=== PATIENT | female | born 1995 | race Caucasian/White ===

== ENCOUNTER 2019-06-24 09:09 | Inpatient (IN) ==
[2019-06-24] MEDS ORDERED: OXYTOCIN 30 UNITS/500 ML BAG IV PRN ×3 (09:39→19:58)
--- NOTE | 2019-06-24 09:45 | History & Physical Report ---
Date of Service June 24, 2019 Patient at 41 weeks who was seen in the office yesterday for elevated blood pressures she is seen here again this morning to determine if she needs induction she has no headaches or severe visual changes or upper abdominal pain apparently blood test in the office were normal I will confirm these later group B strep negative first baby uncomplicated otherwise Assessment & Plan (1) Gestational [-induced] hypertension without significant proteinuria, complicating childbirth: Patient's blood pressure today had a diastolic of 91 that she meets criteria for gestational hypertension. She is 41 weeks. Today is Wednesday and I informed the patient we typically do not do elective inductions on the weekend however with her meeting criteria for gestational hypertension I recommend induction today she is agreeable agreeable. Recommend Pitocin History of Present Illness Primary Care Provider: NO PCP Allergies Allergy/AdvReac Type Severity Reaction Status Date / Time No Known Allergies Allergy Verified 06/23/19 14:19 Home Medications Home Medications Medication Instructions Recorded Confirmed Type PNV cmb#95-ferrous fumarate-FA 1 tab PO DAILY 11/20/18 06/23/19 History [] valacyclovir 1 gram tablet 1,000 mg PO DAILY #30 tab 05/24/19 06/23/19 Rx Patient History Medical History Abnormal menses (Inactive) Adenoid hypertrophy 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) History of drug use (Inactive) History of dysmenorrhea (Inactive) History of earache History of eustachian tube dysfunction History of varicella Otitis externa Recurrent otitis media Suicidal ideation (Resolved) Surgical History History of tonsillectomy (Resolved) Status post myringotomy with insertion of tube Family History Mother Depression Father Drinking problem Grandmother (Paternal) Breast cancer Grandfather (Maternal) Diabetes Other Hypertension Social History marital status: Single Current Living Situation: Family current occupational status: employed Feels Safe at Home: Yes Smoking Status: Former smoker Hx Alcohol Use: No Hx Substance Use: Yes Physical Exam Constitutional: WD/WN, vitals as above Respiratory: normal respiratory effort, lungs clear to auscultation Cardiovascular: RRR, no murmur, no edema Genitourinary: OB Exam Abdomen: + vertex Manual OB Exam: + cervical dilation 2 cm, + cervical effacement 80% and + station -1 Results & Data Vital Signs (Past 12 Hours) Vital Signs Pulse BP 06/24/19 09:35 87 135/91
[2019-06-24 10:07] LABS: Hematocrit (blood only) 37.3 % (37-47); Hemoglobin 12.5 g/dL (12.0-16.0); Mean Corpuscular Hemoglobin 32.1 pg (25-34); Mean Corpuscular Volume 95.6 fL (80-100); Platelet Count 232 K/uL (130-400); RDW Coefficient of Variation 14.8 % (11.5-14.5); White Blood Count 9.85 K/uL (4.8-10.8)
[2019-06-24 10:16] LABS: Mean Corpuscular Hgb Conc 33.5 g/dL (32-36)
[2019-06-24] MEDS: LACTATED RINGER'S 1,000 ML IV PRN ×2 (11:12→13:59)
--- NOTE | 2019-06-24 11:14 | Labor Progress Brief Note ---
Date of Service June 24, 2019 I am unable to see any labs in the EHR system of either [facility] or [facility] record. I will order these now Results & Data Vital Signs (Past 12 Hours) Vital Signs Temp Pulse Resp BP 06/24/19 10:34 67 155/95 H 06/24/19 10:10 98.2 F 20 06/24/19 10:09 82 138/105 H 06/24/19 09:35 87 135/91
[2019-06-24 12:02] LABS: Amphetamines+Metham, Urine Neg (Neg); Barbiturates, Urine Neg (Neg); Benzodiazepine, Urine Neg (Neg); Cocaine, Urine Neg (Neg); MDMA (Ecstacy), Urine Neg (Neg); Methadone, Urine Neg (Neg); Opiate, Urine Neg (Neg); Phencyclidine, Urine Neg (Neg)
[2019-06-24 12:31] LABS: Rubella IgG Antibody Immune (Immune)
[2019-06-24 12:32] LABS: Hepatitis B Surface Antigen Neg (Neg)
[2019-06-24] MEDS ORDERED: fentaNYL 2MCG/ML ROPIV 1.25MG/ML 100 ML BAG EPI ONE (13:24)
[2019-06-24] MEDS ORDERED: BUPIVACAINE 0.25% 30 ML VIAL ONE (13:24)
[2019-06-24] MEDS ORDERED: fentaNYL citrate 100 MCG/2 ML VIAL ONE (13:24)
[2019-06-24] MEDS ORDERED: ePHEDrine sulfate 50 MG/ML AMP ONE (13:24)
--- NOTE | 2019-06-24 13:49 | Anesthesiology Consultation ---
Date of Service June 24, 2019 Assessment & Plan (1) Encounter for pre-operative examination: Chart Review Chart Review: Acceptable Risk for Labor Epidural Consults Requested none ASA ASA2 Proposed Anesthesia Anesthesia Type: Labor Epidural Risk / Benefits Reviewed With: PT / POA / Parent / Guardian, Accepts Plan and Informed Consent Obtained History Height/Weight Height: 5 ft 5 in Weight: 81.647 kg Allergies Allergy/AdvReac Type Severity Reaction Status Date / Time No Known Allergies Allergy Verified 06/23/19 14:19 Medications Home Medications Medication Instructions Recorded Confirmed Last Taken PNV cmb#95-ferrous fumarate-FA 1 tab PO DAILY 11/20/18 06/24/19 06/23/19 09:00 [] valacyclovir 1 gram tablet 1,000 mg PO DAILY #30 tab 05/24/19 06/24/19 06/24/19 07:00 Active Medications Generic Name Dose Route Start Last Admin Trade Name Freq PRN Reason Stop Dose Admin Lactated Ringer's 1,000 mls @ 125 mls/hr 06/24/19 09:39 06/24/19 13:15 Lr IV 06/26/19 09:38 999 mls/hr .Q8H PRN Infusion L&D Protocol Protocol Oxytocin 30 units in 500 mls @ 4 mls/hr 06/24/19 09:39 06/24/19 12:23 Pitocin IV 06/26/19 09:38 0.24 units/hr .Q24H PRN 4 mls/hr Labor Induction/Augmentation Titration Protocol 0.24 UNITS/HR Past Medical History Medical History Abnormal menses (Inactive) Adenoid hypertrophy 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) History of drug use (Inactive) History of dysmenorrhea (Inactive) History of earache History of eustachian tube dysfunction History of varicella Otitis externa Recurrent otitis media Suicidal ideation (Resolved) Exercise / Class Metabolic Activity II 4-5 Yardwork/Stairs/Walk up hill Past Family History Family History Mother Depression Father Drinking problem Grandmother (Paternal) Breast cancer Grandfather (Maternal) Diabetes Other Hypertension Past Surgical History Surgical History History of tonsillectomy (Resolved) Status post myringotomy with insertion of tube Past Anesthesia History No Hx of Anesthesia Complications and No Family Hx of Anesthesia Complications History of PONV No Hx of PONV and No Hx of Motion Sickness Social History Smoking Status: Former smoker Smoking cigarettes per day: Pt quit 10/10/18 Hx Alcohol Use: No Hx Substance Use: No Physical Exam Vital Signs Last Vital Signs Temp 98.1 F 06/24/19 12:00 Pulse 61 06/24/19 13:42 Resp 18 06/24/19 13:00 BP 153/86 H 06/24/19 13:33 Pulse Ox 100 06/24/19 13:42 ENMT Mouth: no dentition abnormality Thyromental Distance: > or= 3.5 Finger Breadths Mallampati Class: II Neck normal visual inspection Respiratory normal respiratory effort Auscultation: lungs clear to auscultation bilaterally Cardiovascular Rate/Rhythm: regular rate and regular rhythm Testing Laboratory Results 06/24/19 09:54
[2019-06-24] MEDS ORDERED: NALOXONE HCL 0.4 MG/1 ML VIAL/CARP IV PRN (14:07)
[2019-06-24] MEDS ORDERED: NALBUPHINE HCL INJ 10 MG/ML AMP IV PRN (14:07)
[2019-06-24] MEDS ORDERED: NALOXONE HCL 1 MG in SODIUM CHLORIDE 0.9% 1000ML 1,000 ML IV PRN (14:07)
[2019-06-24] MEDS ORDERED: ONDANSETRON INJ 2 MG/ML 2 ML VIAL IV PRN (14:07)
[2019-06-24] MEDS ORDERED: ePHEDrine sulfate 50 MG/ML AMP IV PRN (14:07)
[2019-06-24] MEDS ORDERED: DiphenhydrAMINE HCL 50 MG/ML VIAL IV PRN (14:07)
[2019-06-24] MEDS ORDERED: fentaNYL 2MCG/ML ROPIV 1.25MG/ML 100 ML BAG EPI PRN (14:07)
--- NOTE | 2019-06-24 14:38 | Labor Progress Brief Note ---
Date of Service June 24, 2019 Comfy with epidural. AROM for clear fluid. tight 3cm, -1 Results & Data Vital Signs (Past 12 Hours) Vital Signs Temp Pulse Resp BP Pulse Ox 06/24/19 14:32 62 100 06/24/19 14:29 68 137/84 06/24/19 14:27 59 L 100 06/24/19 14:22 61 100 06/24/19 14:17 59 L 100 06/24/19 14:13 59 L 136/74 06/24/19 14:12 59 L 100 06/24/19 14:10 68 126/65 06/24/19 14:08 64 130/66 06/24/19 14:07 57 L 127/64 99 06/24/19 14:05 145/82 H 06/24/19 14:02 56 L 148/86 H 100 06/24/19 14:00 58 L 144/77 H 06/24/19 13:57 59 L 100 06/24/19 13:52 61 100 06/24/19 13:47 76 100 06/24/19 13:42 61 100 06/24/19 13:37 67 100 06/24/19 13:33 58 L 153/86 H 06/24/19 13:00 18 06/24/19 12:30 18 06/24/19 12:00 98.1 F 20 06/24/19 11:46 57 L 142/94 H 06/24/19 11:30 20 06/24/19 11:00 20 06/24/19 10:34 67 155/95 H 06/24/19 10:10 98.2 F 20 06/24/19 10:09 82 138/105 H 06/24/19 09:35 87 135/91
--- NOTE | 2019-06-24 19:45 | Delivery Summary ---
Vaginal Delivery Summary Date of Service June 24, 2019 Spontaneous vaginal delivery of a live vigorous female baby is delivered in occiput anterior position group B strep status was negative fluid was clear loose nuchal cord passed over the head not mouth and nares were suctioned with bulb gentle traction the baby no excessive force live vigorous female infant delivered without difficulty cord clamped and cut cord gases obtained cord blood obtained placenta removed with traction IV Pitocin started uterus tone improved Patient had a second-degree tear repaired with 3-0 Vicryl she also had a periclitoral periurethral tear which was repaired well a temporary catheter was in place to avoid obstruction of the urethra. No local anesthetic was used to improve anesthetic in this area. Estimated blood loss 200 mL sponge and instrument counts correct
[2019-06-24] MEDS ORDERED: ACETAMINOPHEN 325 MG TAB PO PRN (19:58)
[2019-06-24] MEDS ORDERED: SUPERCREAM 0.870% 15 GM JAR EXT PRN (19:58)
[2019-06-24] MEDS ORDERED: BENZOCAINE 20% AER SPR 82.5 GM CAN EXT PRN (19:58)
[2019-06-24] MEDS ORDERED: bisacodyL 10 MG SUPP PR PRN (19:58)
[2019-06-24] MEDS ORDERED: DIPHTHERIA/TETANUS/PERTUSSIS 0.5 ML SYR/VIAL IM ONE (19:58)
[2019-06-24] MEDS ORDERED: HYDROCORTISONE ACETATE 25 MG SUPP PR PRN (19:58)
[2019-06-24 20:03] LABS: Base Excess Cord Venous Blood -3.8 mEq/L (-7.7-1.9); Cord Venous Blood HCO3 22 mmol/L (18.4-26.8); Cord Venous Blood PCO2 41 mmHg (30.4-57.2); Cord Venous Blood PO2 20 mmHg (14.1-43.3); Cord Venous Blood pH 7.34 (7.20-7.44)
[2019-06-24 20:13] LABS: Base Excess Cord Arterial Bld -8.6 mEq/L (-9-1.8); CO2 Cord Arterial Blood 45 mmHg (39.1-73.5); HCO3 Cord Arterial Blood 19 mmol/L (19.7-28.5); O2 Saturation Cord Venous Bld < 60.0 % (<68); Oxygen Sat Cord Arterial Blood < 60.0 % (<60); pH Cord Arterial Blood 7.24 (7.1-7.38)
--- NOTE | 2019-06-24 21:43 | Anesthesiology Progress Note ---
Date of Service June 24, 2019 Anesthesia Post Procedure Vital Signs Vital Signs: Temp Pulse Resp BP Pulse Ox 06/24/19 21:40 78 143/76 H 06/24/19 21:25 99 H 137/69 06/24/19 21:10 93 H 145/69 H 06/24/19 21:01 82 132/70 06/24/19 20:40 88 155/71 H 06/24/19 20:25 111 H 149/83 H 06/24/19 20:15 36.9 C 18 06/24/19 20:10 90 142/76 H 06/24/19 19:56 91 H 147/78 H 06/24/19 19:39 107 H 148/73 H 06/24/19 19:29 106 H 150/82 H 06/24/19 19:20 108 H 144/70 H 06/24/19 19:17 141 H 98 06/24/19 19:12 128 H 97 06/24/19 19:10 151 H 94 06/24/19 19:07 122 H 97 06/24/19 19:02 116 H 98 06/24/19 18:57 109 H 99 06/24/19 18:52 101 H 98 06/24/19 18:47 104 H 99 06/24/19 18:45 24 06/24/19 18:42 116 H 98 06/24/19 18:37 116 H 100 06/24/19 18:34 100 H 91 06/24/19 18:32 91 H 99 06/24/19 18:30 75 24 144/77 H 06/24/19 18:29 108 H 91 06/24/19 18:27 87 99 06/24/19 18:22 86 100 06/24/19 18:17 87 100 06/24/19 18:14 96 H 158/91 H 06/24/19 18:12 79 99 06/24/19 18:09 107 H 92 06/24/19 18:07 81 100 06/24/19 18:05 36.6 C 06/24/19 18:02 73 99 06/24/19 18:00 80 22 144/68 H 06/24/19 17:57 74 100 06/24/19 17:52 73 100 06/24/19 17:47 71 99 06/24/19 17:44 67 136/90 06/24/19 17:42 77 99 06/24/19 17:37 71 99 06/24/19 17:32 79 100 06/24/19 17:30 20 06/24/19 17:28 63 144/74 H 06/24/19 17:27 68 99 06/24/19 17:22 60 98 06/24/19 17:17 67 99 06/24/19 17:15 78 156/81 H 06/24/19 17:12 62 99 06/24/19 17:07 72 99 06/24/19 17:02 61 98 06/24/19 17:00 20 06/24/19 16:59 65 130/75 06/24/19 16:57 61 99 06/24/19 16:52 60 99 06/24/19 16:47 65 99 06/24/19 16:43 64 126/83 06/24/19 16:42 61 99 06/24/19 16:37 66 99 06/24/19 16:32 65 99 06/24/19 16:30 18 06/24/19 16:29 67 136/87 06/24/19 16:27 65 99 06/24/19 16:22 70 99 06/24/19 16:17 71 99 06/24/19 16:13 62 124/76 06/24/19 16:12 62 99 06/24/19 16:07 66 99 06/24/19 16:02 67 98 06/24/19 16:00 36.7 C 20 06/24/19 15:59 60 128/74 06/24/19 15:57 54 L 100 06/24/19 15:52 54 L 100 06/24/19 15:47 60 99 06/24/19 15:43 62 135/77 06/24/19 15:42 56 L 100 06/24/19 15:37 53 L 99 06/24/19 15:32 64 100 06/24/19 15:28 76 134/71 06/24/19 15:27 60 99 06/24/19 15:22 56 L 100 06/24/19 15:17 57 L 99 06/24/19 15:13 59 L 139/83 06/24/19 15:12 58 L 99 06/24/19 15:07 61 100 06/24/19 15:02 61 100 06/24/19 15:00 54 L 18 135/75 06/24/19 14:57 58 L 100 06/24/19 14:52 59 L 100 06/24/19 14:47 57 L 100 06/24/19 14:44 54 L 127/70 06/24/19 14:42 54 L 100 06/24/19 14:37 55 L 100 06/24/19 14:32 62 100 06/24/19 14:30 36.7 C 18 06/24/19 14:29 68 137/84 06/24/19 14:27 59 L 100 06/24/19 14:22 61 100 06/24/19 14:17 59 L 100 06/24/19 14:13 59 L 136/74 06/24/19 14:12 59 L 100 06/24/19 14:10 68 126/65 06/24/19 14:08 64 130/66 06/24/19 14:07 57 L 127/64 99 06/24/19 14:05 145/82 H 06/24/19 14:02 56 L 148/86 H 100 06/24/19 14:00 58 L 144/77 H 06/24/19 13:57 59 L 100 06/24/19 13:52 61 100 06/24/19 13:47 76 100 06/24/19 13:42 61 100 06/24/19 13:37 67 100 06/24/19 13:33 58 L 153/86 H 06/24/19 13:00 18 06/24/19 12:30 18 06/24/19 12:00 36.7 C 20 06/24/19 11:46 57 L 142/94 H 06/24/19 11:30 20 06/24/19 11:00 20 06/24/19 10:34 67 155/95 H 06/24/19 10:10 36.8 C 20 06/24/19 10:09 82 138/105 H 06/24/19 09:35 87 135/91 Transfer of Care Handoff Completed per policy Notes Mental Status: alert / awake / arousable and participated in evaluation Patient Amnestic to Procedure: Yes Nausea / Vomiting: adequately controlled Pain: adequately controlled Airway Patency, RR, SpO2: stable & adequate BP & HR: stable & adequate Hydration State: stable & adequate Anesthetic Complications: no major complications apparent and Pt Satisfied with anesthetic care
[2019-06-25] MEDS: IBUPROFEN 600 MG TAB PO PRN ×4 (00:34→21:43)
[2019-06-25 02:08] VITALS: O2SAT 99
--- NOTE | 2019-06-25 06:34 | Obstetrical Progress Note ---
Date of Service June 25, 2019 day #1 from induction on Wednesday patient is doing well minimal bleeding her pain is well controlled she is able to void she has no extremity pain and no depression Assessment & Plan (1) Gestational [-induced] hypertension without significant proteinuria, complicating childbirth: day #1 continue current care Physical Exam Constitutional WD/WN, vitals as above Gastrointestinal (Abdomen) normal bowel sounds, soft, nontender, no hepatosplenomegaly Minimal vaginal bleeding noted no extremity tenderness Results & Data Vital Signs (Past 12 Hours) Vital Signs Temp Pulse Pulse Resp BP BP Pulse Ox 06/25/19 05:05 98.1 F 59 L 16 120/71 99 06/25/19 01:39 97.7 F 75 16 135/75 99 06/24/19 21:40 78 18 143/76 H 06/24/19 21:25 99 H 137/69 06/24/19 21:10 93 H 18 145/69 H 06/24/19 21:01 82 132/70 06/24/19 20:40 88 18 155/71 H 06/24/19 20:25 111 H 16 149/83 H 06/24/19 20:15 98.4 F 18 06/24/19 20:10 90 18 142/76 H 06/24/19 19:56 91 H 147/78 H 06/24/19 19:55 98.2 F 16 06/24/19 19:40 16 06/24/19 19:39 107 H 148/73 H 06/24/19 19:29 106 H 150/82 H 06/24/19 19:20 108 H 144/70 H 06/24/19 19:17 141 H 98 06/24/19 19:12 128 H 97 06/24/19 19:10 151 H 94 06/24/19 19:07 122 H 97 06/24/19 19:02 116 H 98 06/24/19 18:57 109 H 99 06/24/19 18:52 101 H 98 06/24/19 18:47 104 H 99 06/24/19 18:45 24 06/24/19 18:42 116 H 98 06/24/19 18:37 116 H 100 06/24/19 18:34 100 H 91
[2019-06-25 07:06] LABS: Hematocrit (blood only) 32.6 % (37-47); Hemoglobin 10.8 g/dL (12.0-16.0); Mean Corpuscular Hemoglobin 31.6 pg (25-34); Mean Corpuscular Hgb Conc 33.1 g/dL (32-36); Mean Corpuscular Volume 95.3 fL (80-100); Mean Platelet Volume 12.2 fL (7.4-10.4); Platelet Count 204 K/uL (130-400); RDW Standard Deviation 51.6 fL (36.4-46.3); Red Blood Count 3.42 M/uL (4.2-5.4); White Blood Count 11.94 K/uL (4.8-10.8)
[2019-06-25] MEDS ORDERED: NON-FORMULARY MEDICATION (Pnv Cmb#95-Ferrous Fumarate-Fa [Prenatal] 1 TAB) PO SCH (09:00)
[2019-06-25] MEDS: PRENATAL VITAMIN 1 TAB PO SCH (09:21)
[2019-06-25] MEDS: DOCUSATE SODIUM 100 MG CAP PO SCH ×2 (09:21→21:47)
[2019-06-25] MEDS: OXYCODONE/ACETAMINOPHEN 5mg/325mg TAB PO PRN ×2 (10:40→21:44)
[2019-06-25] MEDS ORDERED: bisacodyL 5 MG TABEC PO SCH (20:00)
[2019-06-26 06:36] LABS: Hematocrit (blood only) 33.8 % (37-47); Hemoglobin 11.1 g/dL (12.0-16.0)
--- NOTE | 2019-06-26 06:43 | Obstetrical Progress Note ---
Date of Service June 26, 2019 Assessment & Plan (1) Gestational [-induced] hypertension without significant pr oteinuria, complicating childbirth: 24 yo PPD2 s/p complicated by preecclampsia - BP within normal limits today, 132/79 - ambulating, voiding without difficulty - some pain with getting out of bed - okay for discharge home today - preliminary Hep-C Ab positive; will follow up for confirmatory culture (2) Encounter for supervision in primigravida, antepartum: Supervising Physician Co-Signing Physician Notes Resident Physician Supervision Note: I interviewed and examined the patient. Discussed with Dr. Dr. Crawford and agree with findings and plan as documented in the note. Any exceptions or clarifications are listed here: [None] Documented By: Andrea Perez MD, FACOG Subjective No acute complaints. Feeling well this AM. has been able to ambulate without issue. Review of Systems Constitutional: + fatigue; no fever and no chills Respiratory: no cough and no dyspnea Cardiovascular: + edema; no chest pain, no syncope and no calf pain Gastrointestinal: no abdominal pain, no nausea, no vomiting, no cramping, no constipation and no diarrhea/loose stools Genitourinary: no dysuria and no difficulty urinating Neurologic: no headache(s) Physical Exam Constitutional: well developed and well nourished Respiratory: normal respiratory effort; no respiratory distress, no labored breathing and no cough Auscultation: no crackles, no rales, no rhonchi and no wheezes Cardiovascular: Rate/Rhythm: regular rate and regular rhythm Heart Sounds: no gallop, no murmur and no cardiac rub Extremities: + pedal edema Gastrointestinal (Abdomen): Inspection/Auscultation: + abdomen distended and normal bowel sounds Percussion/Palpation: abdomen soft; abdomen nontender and no guarding Genitourinary: Uterus firm, palpable 2 fingers below umbilicus Results & Data Vital Signs (Past 12 Hours) Vital Signs Temp Pulse Resp BP Pulse Ox 06/26/19 00:00 37.1 C 58 L 16 132/79 99 06/25/19 20:00 36.5 C 54 L 16 125/77 99 Laboratory Results WBC 11.94 K/uL (4.8-10.8) H 06/25/19 06:28 RBC 3.42 M/uL (4.2-5.4) L 06/25/19 06:28 Hgb 11.1 g/dL (12.0-16.0) L 06/26/19 06:17 Hct 33.8 % (37-47) L 06/26/19 06:17 MCV 95.3 fL (80-100) 06/25/19 06:28 MCH 31.6 pg (25-34) 06/25/19 06:28 MCHC 33.1 g/dL (32-36) 06/25/19 06:28 RDW Std Deviation 51.6 fL (36.4-46.3) H 06/25/19 06:28 RDW Coeff of Frank 15.0 % (11.5-14.5) H 06/25/19 06:28 Plt Count 204 K/uL (130-400) 06/25/19 06:28 MPV 12.2 fL (7.4-10.4) H 06/25/19 06:28 Cord ABG pH 7.24 (7.1-7.38) 06/24/19 19:17 Cord ABG pCO2 45 mmHg (39.1-73.5) 06/24/19 19:17 Cord ABG pO2 19.0 % (4.1-31.7) 06/24/19 19:17 Cord ABG HCO3 19 mmol/L (19.7-28.5) L 06/24/19 19:17 Cord ABG Base Excess -8.6 mEq/L (-9-1.8) 06/24/19 19:17 Cord ABG O2 Sat < 60.0 % (<60) 06/24/19 19:17 Cord VBG pH 7.34 (7.20-7.44) 06/24/19 19:17 Cord VBG pCO2 41 mmHg (30.4-57.2) 06/24/19 19:17 Cord VBG pO2 20 mmHg (14.1-43.3) 06/24/19 19:17 Cord VBG HCO3 22 mmol/L (18.4-26.8) 06/24/19 19:17 Cord VBG Base Excess -3.8 mEq/L (-7.7-1.9) 06/24/19 19:17 Cord VBG O2 Sat < 60.0 % (<68) 06/24/19 19:17 Barometric Pressure 722.5 mm/Hg 06/24/19 19:17 Barometric Pressure 722.6 mm/Hg 06/24/19 19:17 Blood Gas Comments GELLER 06/24/19 19:17 Blood Gas Comments GELLER 06/24/19 19:17 Urine Opiates Screen Neg (Neg) 06/24/19 10:30 Ur Methadone, Qual Neg (Neg) 06/24/19 10:30 Urine Barbiturates Neg (Neg) 06/24/19 10:30 Ur Phencyclidine (PCP) Neg (Neg) 06/24/19 10:30 U Amphetamin/Meth Scrn Neg (Neg) 06/24/19 10:30 MDMA (Ecstasy) Screen Neg (Neg) 06/24/19 10:30 U Benzodiazepines Scrn Neg (Neg) 06/24/19 10:30 Ur Cocaine Metabolite Neg (Neg) 06/24/19 10:30 U Marijuana (THC) Screen Neg (Neg) 06/24/19 10:30 Hep Bs Antigen Neg (Neg) 06/24/19 11:34 Hepatitis C Antibody Prelim Pos (Neg) A 06/24/19 11:34 HIV 1&2 Ab/P24 Ag 4thGn Neg (Neg) 06/24/19 11:34 Rubella IgG Antibody Immune (Immune) 06/24/19 11:34 PG Care Time/CCT Total # of Minutes Spent Total Time Spent with Patient: Total time spent is greater than 50% in coordination of care (as documented) at patient's floor/unit and/or counseling patient: Resident Activity Tracking Resident Involvement: Resident Care Provided Care Provided: Adult Hospital Medicine
[2019-06-26] MEDS: DOCUSATE SODIUM 100 MG CAP PO SCH (07:56)
[2019-06-26] MEDS: PRENATAL VITAMIN 1 TAB PO SCH (07:56)
[2019-06-26 11:32] VITALS: BP 131/82; PULSE 60; TEMP 98.1
[2019-06-27 15:47] LABS: Chlamydia Trach RNA NOT DETECTED (NOT DETECTED); GC (Neis gonorrhoeae) RNA NOT DETECTED (NOT DETECTED)
== END 2019-06-26 15:45 | disposition home or self-care (01) | DRG 806 ==
LOC: OPB 09:09 → 4S1 09:10 → 4N 23:31

== ENCOUNTER 2019-06-30 23:38 | Inpatient (IN) ==
[2019-06-30] MEDS ORDERED: SODIUM CHLORIDE 0.9% 1000ML 1,000 ML IV ONE (23:57)
--- NOTE | 2019-07-01 00:13 | Emergency Department Note ---
History of Present Illness General Chief complaint: Illness Stated complaint: FEVER, CHILLS, SHAKES. JUST GAVE 7 DAYS AGO History of Present Illness This 24-year-old presents to the ER complaining of fever, chills, body aches for the past day Location: Generalized Quality: Achy Severity: Moderate Duration: Today Timing: Today Context: Patient was concerned and came in Modifying factors: better with Tylenol; worse with nothing Patient had a vaginal delivery 1 week ago secondary to gestational hypertension. She saw OB today because of her flulike symptoms and had a pelvic exam and was negative per patient. No signs of mastitis. T-max 102. She did receive her flu vaccine. She is not breast-feeding. Patient denies chest pain, dyspnea, vaginal increasing pain, vaginal odor, breast pain, cough, sore throat, neck stiffness. No sick contacts. Home Medications Home Medications Medication Instructions Recorded Confirmed Type PNV cmb#95-ferrous fumarate-FA 1 tab PO DAILY 11/20/18 07/01/19 History [] Allergies Allergy/AdvReac Type Severity Reaction Status Date / Time No Known Allergies Allergy Verified 07/01/19 00:31 Past Med/Surg History Medical History Abnormal menses (Inactive) Adenoid hypertrophy 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) History of drug use (Inactive) History of dysmenorrhea (Inactive) History of earache History of eustachian tube dysfunction History of varicella Otitis externa Recurrent otitis media Suicidal ideation (Resolved) Surgical History History of tonsillectomy (Resolved) Status post myringotomy with insertion of tube Family History Mother Depression Father Drinking problem Grandmother (Paternal) Breast cancer Grandfather (Maternal) Diabetes Other Hypertension Social History Preferred Language: Latvian Communication Ability: Effective Beliefs That Will Affect Care: None marital status: Single Current Living Situation: Significant Other Current Living Situation Comment: F[facility] and his 2 children current occupational status: employed Feels Safe at Home: Yes Smoking Status: Never smoker Cigarettes Per Day: Pt quit 10/10/18 ; Hx Alcohol Use: No Hx Substance Use: No Review of Systems A total of 10 systems reviewed and were otherwise negative Physical Exam Vital Signs Vital Signs - 24 hr 06/30/19 23:40 07/01/19 01:18 Temperature 37.3 C 36.8 C Temperature Source Oral Oral Pulse Rate 104 H Pulse Rate [Right Finger] 78 Pulse Rhythm Regular Pulse Strength Normal Respiratory Rate 20 18 Respiratory Effort / Characteristics Non-Labored Spontaneous Non-Labored Spontaneous Respiratory Depth Normal Normal Respiratory Pattern Regular Regular Blood Pressure 148/95 H Blood Pressure [Right Arm] 136/75 Blood Pressure Mean 112 Blood Pressure Mean [Right Arm] 95 Blood Pressure Position Sitting Blood Pressure Position [Right Arm] Lying Pulse Oximetry 96 98 Oxygen Delivery Method Room Air Room Air Sepsis Recent Fever Within 48 Hours No Sepsis Action Taken by Nursing No Action Required VITALS: Vitals are noted on the nurse's note and reviewed by myself. Vital signs reviewed. GENERAL: Pleasant female, in no acute distress, nondiaphoretic, well-developed well-nourished. SKIN: The skin was without rashes, erythema, edema, or bruising. There is no tenting of the skin. Capillary reflex less than 2 seconds. HEAD: Normocephalic atraumatic. EARS: External auditory canals clear, tympanic membranes pearly hamilton without ajay thema or effusion bilaterally. EYES: Pupils equal round and reactive to light and accommodation. Conjunctivae without injection, sclerae without icterus. Extraocular movements intact. NOSE: Patent, turbinates without inflammation or discharge. No sinus tenderness. MOUTH: Mucous membranes mildly dry. Pharynx without erythema or exudate. Uvula midline. Airway patent. Tongue does not deviate. NECK: Supple without nuchal rigidity. No lymphadenopathy. No thyromegaly. Cervical spine is nontender. No JVD. HEART: Regular rate and rhythm without murmurs gallops or rubs. LUNGS: Clear to auscultation bilaterally without wheezes, rales or rhonchi. No retractions or accessory muscle use. ABDOMEN: Positive bowel sounds x 4. Normal tympanic percussion. Soft, nontender, without masses or organomegaly. Chiang sign negative. No guarding or rebound tenderness. No CVA tenderness MUSCULOSKELETAL: No muscle atrophy, erythema, or edema noted. NEURO: Patient was alert and oriented to person place and time. Normal sensation to light and sharp touch. No focal neurological deficits. Course Administered Medications Ioversol (Optiray 320 125ml) 120 ml IV ONCE PRN PRN Reason: Interaction Checking Stop: 07/05/19 01:01 Last Admin: 07/01/19 01:03 Dose: 120 ml Documented by: [id number] Discontinued Medications Acetaminophen (Tylenol) Confirm Administered Dose 650 mg .ROUTE .STK-MED ONE Stop: 07/01/19 03:23 Last Admin: 07/01/19 03:24 Dose: 650 mg Documented by: [id number] Sodium Chloride (Nss 1000ml) 1,000 mls @ 999 mls/hr IV .Q1H1M ONE Stop: 07/01/19 00:57 Last Infusion: 07/01/19 01:17 Dose: 0 mls/hr Documented by: [id number] Admin: 07/01/19 00:19 Dose: 999 mls/hr Documented by: [id number] Ceftriaxone Sodium (Rocephin) 2,000 mg in 70 mls @ 140 mls/hr IV NOW STA Stop: 07/01/19 01:08 Last Infusion: 07/01/19 01:53 Dose: 0 mls/hr Documented by: [id number] Admin: 07/01/19 01:17 Dose: 140 mls/hr Documented by: [id number] Medical Decision Making Medical Records Attestation: I reviewed the patient's medical records. Home Medications Current Medication List: was personally reviewed by me Laboratory Data Attestation: I reviewed the patient's lab results. Result diagrams: 07/01/19 00:01 07/01/19 00:01 Lab Results 07/01/19 07/01/19 07/01/19 Range/Units 00:00 00:01 00:01 WBC 13.87 H (4.8-10.8) K/uL RBC 3.97 L (4.2-5.4) M/uL Hgb 12.6 (12.0-16.0) g/dL Hct 37.4 (37-47) % MCV 94.2 (80-100) fL MCH 31.7 (25-34) pg MCHC 33.7 (32-36) g/dL RDW Std Deviation 49.9 H (36.4-46.3) fL RDW Coeff of Frank 14.5 (11.5-14.5) % Plt Count 287 (130-400) K/uL MPV 10.5 H (7.4-10.4) fL Immature Gran % (Auto) 0.2 % Neut % (Auto) 84.3 % Lymph % (Auto) 6.1 % [place] % (Auto) 8.5 % Eos % (Auto) 0.8 % Baso % (Auto) 0.1 % Immature Gran # (Auto) 0.03 H (0.00-0.02) K/uL Neut # (Auto) 11.69 H (1.4-6.5) K/uL Lymph # (Auto) 0.84 L (1.2-3.4) K/uL [place] # (Auto) 1.18 H (0.11-0.59) K/uL Eos # (Auto) 0.11 (0-0.5) K/uL Baso # (Auto) 0.02 (0-0.2) K/uL Sodium 137 (136-145) mmol/L Potassium 3.3 L (3.5-5.1) mmol/L Chloride 107 (98-107) mmol/L Carbon Dioxide 25 (21-32) mmol/L Anion Gap 5.0 (3-11) BUN 15 (7-18) mg/dl Creatinine 0.82 (0.6-1.2) mg/dl Est Cr Clr Drug Dosing 104.6 ml/min Est GFR ( Amer) 116.1 Est GFR (Non-Af Amer) 100.2 BUN/Creatinine Ratio 18.4 (10-20) Glucose 129 H (70-99) mg/dl Calcium 8.9 (8.5-10.1) mg/dl Total Bilirubin 0.7 (0.2-1) mg/dl AST 23 (15-37) U/L ALT 37 (12-78) U/L Alkaline Phosphatase 135 H (45-117) U/L Total Protein 6.9 (6.4-8.2) gm/dl Albumin 2.8 L (3.4-5.0) gm/dl Globulin 4.1 H (2.5-4.0) gm/dl Albumin/Globulin Ratio 0.7 L (0.9-2) Urine Color Urine Appearance (Clear) Urine pH (4.5-7.5) Ur Specific [place] (1.000-1.030) Urine Protein (Negative) Urine Glucose (UA) (Negative) Urine Ketones (Negative) Urine Blood (Negative) Urine Nitrite (Negative) Urine Bilirubin (Negative) Urine Urobilinogen (Negative) Ur Leukocyte Esterase (Negative) Urine WBC (Auto) (0-5) /hpf Urine RBC (Auto) (0-4) /hpf U Hyaline Cast (Auto) (0-5) /lpf U Epithel Cells (Auto) (0-5) /lpf Urine Bacteria (Auto) (Negative) Influenza Type A (PCR) Neg for Influ A (Neg) Influenza Type B (PCR) Neg for Influ B (Neg) 07/01/19 Range/Units 00:05 WBC (4.8-10.8) K/uL RBC (4.2-5.4) M/uL Hgb (12.0-16.0) g/dL Hct (37-47) % MCV (80-100) fL MCH (25-34) pg MCHC (32-36) g/dL RDW Std Deviation (36.4-46.3) fL RDW Coeff of Frank (11.5-14.5) % Plt Count (130-400) K/uL MPV (7.4-10.4) fL Immature Gran % (Auto) % Neut % (Auto) % Lymph % (Auto) % [place] % (Auto) % Eos % (Auto) % Baso % (Auto) % Immature Gran # (Auto) (0.00-0.02) K/uL Neut # (Auto) (1.4-6.5) K/uL Lymph # (Auto) (1.2-3.4) K/uL [place] # (Auto) (0.11-0.59) K/uL Eos # (Auto) (0-0.5) K/uL Baso # (Auto) (0-0.2) K/uL Sodium (136-145) mmol/L Potassium (3.5-5.1) mmol/L Chloride (98-107) mmol/L Carbon Dioxide (21-32) mmol/L Anion Gap (3-11) BUN (7-18) mg/dl Creatinine (0.6-1.2) mg/dl Est Cr Clr Drug Dosing ml/min Est GFR ( Amer) Est GFR (Non-Af Amer) BUN/Creatinine Ratio (10-20) Glucose (70-99) mg/dl Calcium (8.5-10.1) mg/dl Total Bilirubin (0.2-1) mg/dl AST (15-37) U/L ALT (12-78) U/L Alkaline Phosphatase (45-117) U/L Total Protein (6.4-8.2) gm/dl Albumin (3.4-5.0) gm/dl Globulin (2.5-4.0) gm/dl Albumin/Globulin Ratio (0.9-2) Urine Color Yellow Urine Appearance Cloudy A (Clear) Urine pH 6.5 (4.5-7.5) Ur Specific [place] 1.011 (1.000-1.030) Urine Protein 1+ H (Negative) Urine Glucose (UA) Negative (Negative) Urine Ketones Negative (Negative) Urine Blood 3+ H (Negative) Urine Nitrite Negative (Negative) Urine Bilirubin Negative (Negative) Urine Urobilinogen Negative (Negative) Ur Leukocyte Esterase 3+ H (Negative) Urine WBC (Auto) >30 H (0-5) /hpf Urine RBC (Auto) >30 H (0-4) /hpf U Hyaline Cast (Auto) 0 (0-5) /lpf U Epithel Cells (Auto) >30 H (0-5) /lpf Urine Bacteria (Auto) 2+ H (Negative) Influenza Type A (PCR) (Neg) Influenza Type B (PCR) (Neg) Imaging Data Attestation: I personally reviewed and interpreted this imaging study as follows: MDM Narrative Prior records/ancillary studies reviewed. Triage Nursing notes reviewed. Additional history obtained from family. The patient's history was concerning for fever. Differential diagnosis: Etiologies such as viral syndrome, endometritis, mastitis, otitis, pharyngitis, pneumonia, influenza, meningitis, urinary tract infection, sepsis, bacteremia, as well as others were entertained. Physical examination: As above ER treatment provided: IV fluids, Gatorade, Rocephin On reassessment the patient felt better. Diagnostics interpreted by me: The labs revealed leukocytosis, urine concerning for infection and sent for culture. Blood cultures pending Negative flu Imaging studies: Preliminary Findings Only See Final Report For Complete Findings CT CHEST With Contrast: The aorta demonstrates a normal smooth contour without aneurysm or dissection. The pulmonary arterial tree is well-opacified with contrast. There is no evidence of pulmonary embolism. The lungs are clear. No infiltrate, consolidation, pneumothorax, or pleural effusion. CT ABDOMEN & PELVIS With Contrast: There is mild right-sided hydronephrosis and hydroureter down to the ureterovesicular junction. There is a 4 mm calcification in the right of the pelvis very near the distal right ureter and ureterovesicular junction which may represent a distal ureteral stone versus an adjacent phlebolith. There is a nonobstructive 5 mm calyceal calculus in the upper pole of the left kidney. The urinary bladder is partially distended with an unremarkable appearance. Bowel loops are unremarkable. Solid abdominal organs are unremarkable. Enlarged uterus with small amount of clot in the endometrial cavity. Radiologist: Lemuel Wakefield MD Chest x-ray with no acute consolidation, pneumothorax or free air per my interpretation Consultation: A consultation was placed with Dr. Wakefield. The case was discussed and diagnostics were reviewed. The patient was evaluated in the ER for further treatment. This appears to be consistent with pyelonephritis with possible infected stone. Patient was given antibiotics. Medicine was consulted. Urine culture was placed. Patient is agreeable treatment plan of possible admission. CAT scan is read by stat radiology and concerning for possible obstructive stone. Patient's urine is infected. She is running a fever. She has a white count. the evaluation outlined above emergent etiologies such as otitis, pharyngitis, pneumonia, meningitis, as well as others were deemed relatively unlikely. The pt informed about the findings as listed above. All questions were answered and pleased with the treatment. Case reviewed with my attending The chart was completed utilizing [employer] Speech voice recognition software. Grammatical errors, random word insertions, pronoun errors, and incomplete sentences are an occassional consequence of this system due to software limitations, ambient noise, and hardware issues. Any formal questions or concerns about the content, text, or information contained within the body of this dictation should be directly addressed to the physician computer assistant for clarification. Impression & Plan Pyelonephritis, Fever, Kidney stone Discharge Plan Visit Data Chief Complaint: Illness Stated Complaint: FEVER, CHILLS, SHAKES. JUST GAVE 7 DAYS AGO ED Provider: Mirella Olvera ED Midlevel Provider: Meron Perez Discharge Problem: Pyelonephritis, Fever, Kidney stone Patient Disposition: Being Evaluated by Hospitalist Condition: Good Discharge Instructions Interventions: ED Discharge Assessment Last Done: 07/01/19 03:33 Discharge Problem: Fever Qualifiers: Fever type: unspecified Qualified Code(s): R50.9 - Fever, unspecified
[2019-07-01 00:25] LABS: Basophils # (auto) 0.02 K/uL (0-0.2); Basophils % (auto) 0.1 %; Eosinophils # (auto) 0.11 K/uL (0-0.5); Eosinophils % (auto) 0.8 %; Hematocrit (blood only) 37.4 % (37-47); Hemoglobin 12.6 g/dL (12.0-16.0); Immature Granulocytes # (auto) 0.03 K/uL (0.00-0.02); Immature Granulocytes % (auto) 0.2 %; Lymphocytes # (auto) 0.84 K/uL (1.2-3.4); Lymphocytes % (auto) 6.1 %; Mean Corpuscular Hemoglobin 31.7 pg (25-34); Mean Corpuscular Hgb Conc 33.7 g/dL (32-36); Mean Corpuscular Volume 94.2 fL (80-100); Mean Platelet Volume 10.5 fL (7.4-10.4); Monocytes # (auto) 1.18 K/uL (0.11-0.59); Monocytes % (auto) 8.5 %; Neutrophils # (auto) 11.69 K/uL (1.4-6.5); Neutrophils % (auto) 84.3 %; Platelet Count 287 K/uL (130-400); RDW Coefficient of Variation 14.5 % (11.5-14.5); RDW Standard Deviation 49.9 fL (36.4-46.3); Red Blood Count 3.97 M/uL (4.2-5.4); White Blood Count 13.87 K/uL (4.8-10.8)
[2019-07-01 00:35] LABS: Appearance Urine Cloudy (Clear); Bacteria Urine Automated 2+ (Negative); Bilirubin Urine Negative (Negative); Blood Urine 3+ (Negative); Cast Urine Automated 0 /lpf (0-5); Color Urine Yellow; Epithelial Cell Urine Auto >30 /lpf (0-5); Glucose Urine UA Negative (Negative); Ketones Urine Negative (Negative); Leukocyte Esterase Urine 3+ (Negative); Nitrite Urine Negative (Negative); Protein Urine 1+ (Negative); RBC Urine Automated >30 /hpf (0-4); Specific Gravity Urine 1.011 (1.000-1.030); Urobilinogen Urine Negative (Negative); WBC Urine Automated >30 /hpf (0-5); pH Urine 6.5 (4.5-7.5)
[2019-07-01] MEDS ORDERED: cefTRIAXone SODIUM 2,000 MG/70 ML BAG IV STA (00:39)
[2019-07-01 00:44] LABS: Albumin Level 2.8 gm/dl (3.4-5.0); BUN Creatinine Ratio 18.4 (10-20); Calcium 8.9 mg/dl (8.5-10.1); Creatinine Clr Calc Pharmacy 104.6 ml/min; Est GFR (African American) 116.1; Est GFR (Non-African American) 100.2; Potassium 3.3 mmol/L (3.5-5.1)
[2019-07-01 00:44] LABS: Influenza A virus by PCR Neg for Influ A (Neg); Influenza B virus by PCR Neg for Influ B (Neg)
[2019-07-01 00:47] LABS: Albumin Globulin Ratio 0.7 (0.9-2); Bilirubin,Total 0.7 mg/dl (0.2-1); Globulin 4.1 gm/dl (2.5-4.0); Total Protein 6.9 gm/dl (6.4-8.2)
[2019-07-01] MEDS ORDERED: OPTIRAY 320 125ml IV PRN (01:02)
[2019-07-01] MEDS ORDERED: ONDANSETRON INJ 2 MG/ML 2 ML VIAL IV PRN ×2 (02:29→03:57)
[2019-07-01] MEDS ORDERED: ACETAMINOPHEN 325 MG TAB PO PRN (02:29)
[2019-07-01] MEDS ORDERED: POLYETHYLENE (MIRALAX) 17 GM PACK PO PRN ×2 (02:29→03:57)
[2019-07-01] MEDS ORDERED: cefTRIAXone SODIUM 1,000 MG in DEXTROSE 5% 50 ML IV SCH (02:45)
--- NOTE | 2019-07-01 03:04 | History & Physical Report ---
Date of Service July 01, 2019 Assessment & Plan (1) Kidney stone: Patient with mild right-sided hydronephrosis, 4 mm calcification in the right of the pelvis. + UA. + Fevers/chills/rigors at home Admit to medical floor Follow culture IV fluid with normal saline Pain control with Toradol as needed Nausea control Zofran as needed Strain urine Flomax daily Urology consultation appreciated Present on Admission?: Yes (2) Hepatitis C: Patient with prior history of IV drug use with successful recovery. Has been drug-free for years. Was just informed today that she has hepatitis C Outpatient referral for genotyping, imaging and possible treatment Patient s/p on 06/24/19 - doing well. No gynecological complications suspected at this time. -Encourage ambulation -Pads/maggie-care as needed F/E/N- NSS at 125mL/hr, monitor electrolytes and replete as needed, K-riders, NPO for now Ppx - low risk, encourage ambulation Code - Full Dispo - Admit to medical floor Present on Admission?: Yes History of Present Illness Chief Complaint: Right flank pain, fevers, chills, rigors Primary Care Provider: NO PCP Robert Bae is a 24-year-old female presenting with right nephrolithiasis. Patient is s/p spontaneous vaginal delivery on 06/24/2019 with delivery of a healthy baby girl. She had some hypertension late in therefore was induced. Otherwise was uncomplicated. Uncomplicated delivery. Last night patient developed fever, chills and rigors as well as worsening dysuria and right-sided abdominal/flank pain. Her fever this evening was 102.8 which prompted her to come to the ER. Additionally she is complaining of some mild shortness of breath and she had a headache earlier in the evening which has since resolved. She is still passing lochia. Denies foul-smelling discharge or clots. Denies visual changes or edema of her hands or feet. No history of renal stones. No additional complaints at this time ER course: Ceftriaxone, normal saline solution Allergies Allergy/AdvReac Type Severity Reaction Status Date / Time No Known Allergies Allergy Verified 07/01/19 00:31 Home Medications Home Medications Medication Instructions Recorded Confirmed Type PNV cmb#95-ferrous fumarate-FA 1 tab PO DAILY 11/20/18 07/01/19 History [] Past Med/Surg History Medical History Abnormal menses (Inactive) Adenoid hypertrophy 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) History of drug use (Inactive) History of dysmenorrhea (Inactive) History of earache History of eustachian tube dysfunction History of varicella Otitis externa Recurrent otitis media Suicidal ideation (Resolved) Surgical History History of tonsillectomy (Resolved) Status post myringotomy with insertion of tube Family History Mother Depression Father Drinking problem Grandmother (Paternal) Breast cancer Grandfather (Maternal) Diabetes Other Hypertension Social History Preferred Language: Serbian Communication Ability: Effective Beliefs That Will Affect Care: None marital status: Single Current Living Situation: Significant Other Current Living Situation Comment: [facility] and his 2 children current occupational status: employed Feels Safe at Home: Yes Smoking Status: Never smoker Cigarettes Per Day: Pt quit 10/10/18 ; Hx Alcohol Use: No Hx Substance Use: No Review of Systems Review of Systems: All systems reviewed & are unremarkable except as noted in HPI & below Physical Exam Physical Exam: General: patient resting comfortably, NAD, non-toxic in appearance, AA&O x 4 Skin: warm, dry, intact, no rashes or lesions HEENT: NC/AT, PERRL, EOMI, anicteric sclera, conjunctiva without injection, external ear normal to inspection and nontender, nares patent, moist mucus membranes, dentition intact, no oropharyngeal lesions, neck supple, trachea midline, no LAD, no thyromegaly, no JVD Heart: +S1/S2, regular, no m/r/g Lungs: equal air entry bilaterally, no rales/rhonchi/wheezes Abd: +BS, soft, NT/ND, no masses/organomegaly/ascites, positive CVA tenderness on the right Ext: warm, 2+ pulses in UE/LE bilaterally, no clubbing/cyanosis or edema Neuro: nonfocal, patient AA&O x 4, speech intact, no facial droop, moving all extremities on command with equal strength 5/5 Results & Data Vital Signs (Past 12 Hours) Vital Signs Temp Pulse Pulse Resp BP BP Pulse Ox 07/01/19 01:18 36.8 C 78 18 136/75 98 06/30/19 23:40 37.3 C 104 H 20 148/95 H 96 Laboratory Results Lab Results 07/01/19 07/01/19 07/01/19 Range/Units 00:00 00:01 00:01 WBC 13.87 H (4.8-10.8) K/uL RBC 3.97 L (4.2-5.4) M/uL Hgb 12.6 (12.0-16.0) g/dL Hct 37.4 (37-47) % MCV 94.2 (80-100) fL MCH 31.7 (25-34) pg MCHC 33.7 (32-36) g/dL RDW Std Deviation 49.9 H (36.4-46.3) fL RDW Coeff of Frank 14.5 (11.5-14.5) % Plt Count 287 (130-400) K/uL MPV 10.5 H (7.4-10.4) fL Immature Gran % (Auto) 0.2 % Neut % (Auto) 84.3 % Lymph % (Auto) 6.1 % [place] % (Auto) 8.5 % Eos % (Auto) 0.8 % Baso % (Auto) 0.1 % Immature Gran # (Auto) 0.03 H (0.00-0.02) K/uL Neut # (Auto) 11.69 H (1.4-6.5) K/uL Lymph # (Auto) 0.84 L (1.2-3.4) K/uL [place] # (Auto) 1.18 H (0.11-0.59) K/uL Eos # (Auto) 0.11 (0-0.5) K/uL Baso # (Auto) 0.02 (0-0.2) K/uL Sodium 137 (136-145) mmol/L Potassium 3.3 L (3.5-5.1) mmol/L Chloride 107 (98-107) mmol/L Carbon Dioxide 25 (21-32) mmol/L Anion Gap 5.0 (3-11) BUN 15 (7-18) mg/dl Creatinine 0.82 (0.6-1.2) mg/dl Est Cr Clr Drug Dosing 104.6 ml/min Est GFR ( Amer) 116.1 Est GFR (Non-Af Amer) 100.2 BUN/Creatinine Ratio 18.4 (10-20) Glucose 129 H (70-99) mg/dl Calcium 8.9 (8.5-10.1) mg/dl Total Bilirubin 0.7 (0.2-1) mg/dl AST 23 (15-37) U/L ALT 37 (12-78) U/L Alkaline Phosphatase 135 H (45-117) U/L Total Protein 6.9 (6.4-8.2) gm/dl Albumin 2.8 L (3.4-5.0) gm/dl Globulin 4.1 H (2.5-4.0) gm/dl Albumin/Globulin Ratio 0.7 L (0.9-2) Urine Color Urine Appearance (Clear) Urine pH (4.5-7.5) Ur Specific [place] (1.000-1.030) Urine Protein (Negative) Urine Glucose (UA) (Negative) Urine Ketones (Negative) Urine Blood (Negative) Urine Nitrite (Negative) Urine Bilirubin (Negative) Urine Urobilinogen (Negative) Ur Leukocyte Esterase (Negative) Urine WBC (Auto) (0-5) /hpf Urine RBC (Auto) (0-4) /hpf U Hyaline Cast (Auto) (0-5) /lpf U Epithel Cells (Auto) (0-5) /lpf Urine Bacteria (Auto) (Negative) Influenza Type A (PCR) Neg for Influ A (Neg) Influenza Type B (PCR) Neg for Influ B (Neg) 07/01/19 Range/Units 00:05 WBC (4.8-10.8) K/uL RBC (4.2-5.4) M/uL Hgb (12.0-16.0) g/dL Hct (37-47) % MCV (80-100) fL MCH (25-34) pg MCHC (32-36) g/dL RDW Std Deviation (36.4-46.3) fL RDW Coeff of Frank (11.5-14.5) % Plt Count (130-400) K/uL MPV (7.4-10.4) fL Immature Gran % (Auto) % Neut % (Auto) % Lymph % (Auto) % [place] % (Auto) % Eos % (Auto) % Baso % (Auto) % Immature Gran # (Auto) (0.00-0.02) K/uL Neut # (Auto) (1.4-6.5) K/uL Lymph # (Auto) (1.2-3.4) K/uL [place] # (Auto) (0.11-0.59) K/uL Eos # (Auto) (0-0.5) K/uL Baso # (Auto) (0-0.2) K/uL Sodium (136-145) mmol/L Potassium (3.5-5.1) mmol/L Chloride (98-107) mmol/L Carbon Dioxide (21-32) mmol/L Anion Gap (3-11) BUN (7-18) mg/dl Creatinine (0.6-1.2) mg/dl Est Cr Clr Drug Dosing ml/min Est GFR ( Amer) Est GFR (Non-Af Amer) BUN/Creatinine Ratio (10-20) Glucose (70-99) mg/dl Calcium (8.5-10.1) mg/dl Total Bilirubin (0.2-1) mg/dl AST (15-37) U/L ALT (12-78) U/L Alkaline Phosphatase (45-117) U/L Total Protein (6.4-8.2) gm/dl Albumin (3.4-5.0) gm/dl Globulin (2.5-4.0) gm/dl Albumin/Globulin Ratio (0.9-2) Urine Color Yellow Urine Appearance Cloudy A (Clear) Urine pH 6.5 (4.5-7.5) Ur Specific [place] 1.011 (1.000-1.030) Urine Protein 1+ H (Negative) Urine Glucose (UA) Negative (Negative) Urine Ketones Negative (Negative) Urine Blood 3+ H (Negative) Urine Nitrite Negative (Negative) Urine Bilirubin Negative (Negative) Urine Urobilinogen Negative (Negative) Ur Leukocyte Esterase 3+ H (Negative) Urine WBC (Auto) >30 H (0-5) /hpf Urine RBC (Auto) >30 H (0-4) /hpf U Hyaline Cast (Auto) 0 (0-5) /lpf U Epithel Cells (Auto) >30 H (0-5) /lpf Urine Bacteria (Auto) 2+ H (Negative) Influenza Type A (PCR) (Neg) Influenza Type B (PCR) (Neg) Diagnostic Findings CT abdomen and pelvis with contrast: Per stat radthere is mild right-sided hydronephrosis and hydroureter down to the ureterovesicular junction. There is a 4 mm calcification in the right of the pelvis very near the distal right ureter and ureterovesicular junction which may represent a distal ureteral stone versus an adjacent phlebolith. There is a nonobstructive 5 mm calyceal calculus in the upper pole of the left kidney. The urinary bladder is partially distended with an unremarkable appearance Bowel loops are unremarkable Solid abdominal organs are unremarkable Enlarged uterus with small amount of clot in the endometrial cavity CTA chestPer stat read: No PE Code Status & VTE Plan Code Status Full code VTE Prophylaxis Plan Reason for no VTE drug order: Treatment not indicated Reason for no VTE mechanical prophylaxis: Treatment not tolerated PG Care Time/CCT Total # of Minutes Spent Total Time Spent with Patient: Total time spent is greater than 50% in coordination of care (as documented) at patient's floor/unit and/or counseling patient: (1) Hepatitis C Viral hepatitis chronicity: acute
[2019-07-01] MEDS ORDERED: ACETAMINOPHEN 325 MG TAB ONE (03:22)
[2019-07-01] MEDS ORDERED: KETOROLAC TROMETHAMINE 15 MG/ML VIAL IV PRN (03:57)
[2019-07-01] MEDS: SODIUM CHLORIDE 0.9% 1000ML 1,000 ML IV SCH ×2 (04:49→13:31)
[2019-07-01] MEDS: POTASSIUM CHLORIDE / WTR 10 MEQ/100 ML PLCT IV SCH ×3 (04:49→06:54)
--- NOTE | 2019-07-01 05:54 | XRay Report ---
XR chest 2V PA/lateral CLINICAL HISTORY: 24 years-old Female presenting with fever. TECHNIQUE: PA and lateral views of the chest were obtained. COMPARISON: 05/02/2014. FINDINGS: Cardiomediastinal silhouette normal. Lungs and pleural spaces clear. Osseous structures normal. Upper abdomen normal. IMPRESSION: No acute cardiopulmonary disease. ACT 112: Negative or not required by law. Electronically signed by: Eyal Saeed M.D. 07/01/2019 5:53 AM
--- NOTE | 2019-07-01 06:01 | CT Scan Report ---
CT angio chest PE protocol CLINICAL HISTORY: 24 years-old Female presenting with recent vaginal delivery, fever, shortness of br eath, clinical concern for pulmonary embolus. TECHNIQUE: Multidetector CT angiography of the chest was performed after administration of intravenou s contrast. 3-D volumetric and/or maximum intensity projection (MIP) images were subsequently reconst ructed for review. IV contrast: 120 mL of Optiray 320. One or more dose lowering techniques were used consistent with the principles of ALARA (as low as reasonably achievable), including automatic expos ure control, mA or kV adjustment to individual patient size, and/or use of iterative reconstruction. COMPARISON: Chest x-ray from earlier the same day. CT DOSE (mGy.cm): The estimated cumulative dose is 588.18. FINDINGS: Roving Marker topogram: Unremarkable. Pulmonary vasculature: The study is adequate for assessment of the pulmonary vascular tree. No filling defect within the pul monary arteries to suggest embolus. Main pulmonary artery is not enlarged. No flattening of the inter ventricular septum. No intracardiac filling defect. No reflux of contrast into the hepatic veins. Remaining chest: Soft tissues: Normal thyroid and thoracic inlet. No axillary, supraclavicular, mediastinal, or hilar lymphadenopathy. Normal aorta. Normal heart size. No pericardial or pleural effusion. Upper abdomen n ormal. Lungs and airways: No pneumothorax. Central airways patent. Pulmonary arteries are not significantly enlarged relative to adjacent bronchi. No interlobular septal thickening. No focal infiltrate or nodu le. Musculoskeletal: Normal osseous structures. IMPRESSION: 1. No evidence of pulmonary embolus. No acute intrathoracic pathology. ACT 112: Negative or not required by law. Electronically signed by: Eyal Saeed M.D. 07/01/2019 5:59 AM
--- NOTE | 2019-07-01 06:09 | CT Scan Report ---
CT abd pelvis IV con only CLINICAL HISTORY: 24 years-old Female presenting with recent vag delivery, UTI, fever, lower abd pain . TECHNIQUE: Multidetector CT of the abdomen and pelvis was performed after the administration of intra venous contrast. IV contrast: 120 mL of Optiray 320. One or more dose lowering techniques were used c onsistent with the principles of ALARA (as low as reasonably achievable), including automatic exposur e control, mA or kV adjustment to individual patient size, and/or use of iterative reconstruction. COMPARISON: None. CT DOSE (mGy.cm): The estimated cumulative dose is 588.18 mGy.cm. FINDINGS: Air Crew Supervisor topogram: Unremarkable. Lung bases: Normal heart size. No pericardial or pleural effusion. No focal infiltrate or nodule at t he lung bases. Liver: Normal morphology. No liver lesion. Patent hepatic vasculature. Biliary: No intrahepatic or extrahepatic biliary ductal dilatation. Normal gallbladder. Pancreas: Normal. Spleen: Mildly enlarged measuring 14.0 cm in maximal sagittal dimension. Adrenal glands: 2.4 cm cyst along the anterior and inferior aspect of the lateral limb of the left ad renal gland. Right adrenal gland normal. Kidneys and ureters: Enlarged right kidney with mildly heterogeneous enhancement. Moderate pelvocalie ctasis of the right kidney with urothelial thickening and distention of the right ureter. The right u reter remains distended throughout its length. A phlebolith is noted in the right hemipelvis distinct ly separate from the ureter. No left hydronephrosis. Nonobstructing left nephrolithiasis measuring up to 5 mm. Left ureter nondistended. No left urothelial thickening is apparent. Bladder: Mild circumferential bladder wall thickening. No perivesicular fat infiltration. Pelvic organs: The uterus is enlarged with mild amount of fluid in the endometrial cavity. Prominent subendometrial vascularity especially at the fundus. These likely represent expected sampson es. Bowel: Mild stool burden throughout normal caliber colon. The appendix is normal. No bowel obstructio n. Peritoneal cavity: No free fluid or intraperitoneal gas. Lymph nodes: No enlarged lymph nodes in the abdomen or pelvis. Vasculature: Aorta and IVC patent and normal in caliber. Abdominal wall: Diastasis of the rectus abdominis. Fat-containing umbilical hernia. Musculoskeletal: Normal. IMPRESSION: 1. Dilated right renal collecting system with significant right urothelial thickening and mildly het erogeneous right renal enhancement. These findings are favored to represent upper tract infection wit h pyelonephritis and a flaccid renal collecting system. Alternatively, this could also represent sequ aime of recent obstruction in the setting of a ureteral calculus. There is no demonstrable right urete ral calculus on the current exam to suggest an ongoing obstruction. Follow-up with renal ultrasound i s recommended to ensure resolution of right urinary collecting system dilatation. 2. Left nephrolithiasis. No left hydronephrosis. 3. Mild bladder wall thickening could be due to cystitis. Correlate with urinalysis. 4. Expected appearance of the uterus. 5. Mild splenomegaly. 6. No appendicitis. ACT 112: Negative or not required by law. Electronically signed by: Eyal Saeed M.D. 07/01/2019 6:08 AM
[2019-07-01 06:56] LABS: Basophils # (auto) 0.01 K/uL (0-0.2); Basophils % (auto) 0.1 %; Eosinophils # (auto) 0.08 K/uL (0-0.5); Eosinophils % (auto) 0.8 %; Hematocrit (blood only) 34.4 % (37-47); Hemoglobin 11.6 g/dL (12.0-16.0); Immature Granulocytes # (auto) 0.03 K/uL (0.00-0.02); Immature Granulocytes % (auto) 0.3 %; Lymphocytes # (auto) 0.68 K/uL (1.2-3.4); Lymphocytes % (auto) 6.8 %; Mean Corpuscular Hemoglobin 31.7 pg (25-34); Mean Corpuscular Hgb Conc 33.7 g/dL (32-36); Mean Platelet Volume 10.6 fL (7.4-10.4); Monocytes # (auto) 0.95 K/uL (0.11-0.59); Monocytes % (auto) 9.6 %; Neutrophils # (auto) 8.18 K/uL (1.4-6.5); Neutrophils % (auto) 82.4 %; Platelet Count 261 K/uL (130-400); RDW Coefficient of Variation 14.8 % (11.5-14.5); RDW Standard Deviation 50.1 fL (36.4-46.3); Red Blood Count 3.66 M/uL (4.2-5.4); White Blood Count 9.93 K/uL (4.8-10.8)
[2019-07-01 07:35] LABS: BUN Creatinine Ratio 16.4 (10-20); Calcium 8.1 mg/dl (8.5-10.1); Est GFR (African American) 142.6; Potassium 3.4 mmol/L (3.5-5.1)
[2019-07-01] MEDS ORDERED: POTASSIUM CHLORIDE 20 MEQ TABCR PO SCH (09:00)
[2019-07-01] MEDS ORDERED: TAMSULOSIN HCL 0.4 MG CAP PO SCH (09:00)
--- NOTE | 2019-07-01 10:31 | Urology Consultation ---
Date of Consultation July 01, 2019 Assessment & Plan (1) Kidney stone: Chills; sweats, ill feeling Reviewed her history and discussed her imaging with her At present, I do not believe the calcification in the deep right pelvis is a kidney stone, that seems to be a phlebolith I believe the mild hydronephrosis is persistent from her and continued resolution of the related uterine changes I do not see any indication for surgical intervention I am uncertain her urinary system is the source of her fevers or chills, but coverage with antibiotics empirically would make some sense She has a small stone in the left kidneythis does not require intervention now If clinical picture changes to imply an acute urologic issue, we will return, otherwise I would recommend empiric treatment for infection and supportive management. History of Present Illness Attending Physician: Ean Ramos History of Present Illness Healthy 24-year-old female 1 week status post vaginal deliveryhypertension immediately prior to the delivery Returns to the hospital now with low-grade temperatures, sweats/chills Mild back painbilateral, right slightly greater than left CT showing mild hydronephrosis, still in immediate post gravid uterus; phlebolith in the deep pelvis, no evidence of ureteral stone; small stone in the left kidney Subjectively, she has sweats and chills, does not feel that she has any urinary issues right now Has never had a kidney stone, no family history of kidney stones, no her personal history of UTIs Allergies Allergy/AdvReac Type Severity Reaction Status Date / Time No Known Allergies Allergy Verified 07/01/19 00:31 Home Medications Home Medications Medication Instructions Recorded Confirmed Type PNV cmb#[id number]-ferrous fumarate-FA 1 tab PO DAILY 11/20/18 07/01/19 History [] Patient History Medical History Abnormal menses (Inactive) Adenoid hypertrophy 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) History of drug use (Inactive) History of dysmenorrhea (Inactive) History of earache History of eustachian tube dysfunction History of varicella Otitis externa Recurrent otitis media Suicidal ideation (Resolved) Surgical History History of tonsillectomy (Resolved) Status post myringotomy with insertion of tube Family History Mother Depression Father Drinking problem Grandmother (Paternal) Breast cancer Grandfather (Maternal) Diabetes Other Hypertension Social History Preferred Language: Malian Communication Ability: Effective Backfiller Required: No Beliefs That Will Affect Care: None marital status: Single Current Living Situation: Significant Other and Other Current Living Situation Comment: 3 children current occupational status: employed Feels Safe at Home: Yes Smoking Status: Former smoker Cigarettes Per Day: Pt quit 10/10/18 ; Second Hand Exposure: Yes ; Hx Alcohol Use: No Hx Substance Use: No Review of Systems Constitutional: + fever, + chills, + sweats and + body aches; no fatigue Eyes: no worsening vision Ear, Nose, Mouth, Throat: no facial pain and no pain with swallowing Respiratory: no cough and no dyspnea Cardiovascular: no chest pain and no palpitations Gastrointestinal: no abdominal pain, no nausea and no vomiting Genitourinary: no dysuria, no difficulty urinating, no urinary frequency and no hematuria Musculoskeletal: no back pain Integumentary: no rash and no urticaria Neurologic: no gait abnormality and no unsteadiness Psychiatric: no behavioral changes and no depression Endocrine: no fatigue Physical Exam Constitutional: well developed and well nourished Not uncomfortable, but sweaty appearing Neck: neck nontender Respiratory: normal respiratory effort; no respiratory distress and does not use accessory muscles Cardiovascular: Rate/Rhythm: regular rate Vessels: radial pulses present Extremities: no edema Gastrointestinal (Abdomen): Inspection/Auscultation: abdomen normal to inspection Percussion/Palpation: abdomen soft (Suprapubic area is appropriat meena tenderminimal); abdomen nontender and no guarding Musculoskeletal: Head/Neck/Chest: normocephalic and head atraumatic Extremities: extremities normal to inspection Skin: no rashes and no lesions Trauma: no evidence of skin trauma Neurologic: awake; not obtunded Speech / Cognition: normal speech Motor/Sensory: no tremor Psychiatric: Orientation: alert and oriented x 3 Lymphatic: no lymphadenopathy Results & Data Vital Signs (Past 12 Hours) Vital Signs Temp Pulse Pulse Resp BP BP BP 07/01/19 07:45 36.9 C 73 15 109/62 12/21/19 03:45 36.9 C 102 H 16 150/88 H 07/01/19 03:26 37.9 C H 96 H 18 133/60 07/01/19 01:18 36.8 C 78 18 136/75 06/30/19 23:40 37.3 C 104 H 20 148/95 H Pulse Ox 07/01/19 07:45 97 07/01/19 03:45 100 07/01/19 03:26 97 07/01/19 01:18 98 06/30/19 23:40 96 PG Care Time/CCT Total # of Minutes Spent Total Time Spent with Patient: Total time spent is greater than 50% in coordination of care (as documented) at patient's floor/unit and/or counseling patient:
[2019-07-01] MEDS ORDERED: POTASSIUM CHLORIDE 20 MEQ TABCR PO ONE (12:00)
[2019-07-01] MEDS ORDERED: cefTRIAXone SODIUM 2,000 MG in DEXTROSE 5% 50 ML IV SCH (12:00)
--- NOTE | 2019-07-01 14:30 | Hospitalist Progress Note ---
Date of Service July 01, 2019 Assessment & Plan (1) Pyelonephritis: - Dilated right renal collecting system with urothelial thickening likely representing pyelonephritis; also concern for possible recent renal obstructing calculi. - Low grade fever, leukocytosis and tachycardia noted on admission. - U/a +bacteria and leuk est; UC & BC pending. - Will start Ceftriaxone IV for empiric coverage; follow UC results. - Urology consulted, pt. likely has a phlebolith but does not have obstructing renal calculi. Does have small stone in left kidney, does not require intervention. - Continue NS at 80 cc/hr. Regular diet as tolerated. (2) Fever: - Likely related to pyelonephritis. (3) Hepatitis C: - Patient with prior history of IV drug use with successful recovery. Has been drug-free for years. Was just informed that she has Hep C. - Outpatient referral for treatment. (4) : - S/p on 06/24/19; doing well from a gynecological standpoint. - Is not currently - therefore no concern for medication interactions. (5) Hypokalemia: - K level 3.4 -- ordered K 30 mEq IV. - Repeat level in the morning. (6) DVT prophylaxis: - SCDs; hold pharmacologic ppx due to recent delivery. Dispo: Med/surg; discharge pending improvement in fever/chills and UC results, likely tomorrow. Supervising Physician Co-Signing Physician Notes Attending Attestation: Chart reviewed in detail, care plan d/w OG Palomo. I agree w/ the sims components of her documentation. 24yo female, recently post- following a - with UTI/right-sided pyelonephritis. Vitals/labs remain acceptable. Cont IV abx and await culture results. Ean Ramos MD Subjective Pt reports right flank pain is now resolved. Denies fever/chills, dysuria or hematuria. Plan to start IV abx for coverage of UTI. Review of Systems Review of Systems: All systems reviewed & are unremarkable except as noted in HPI & below Constitutional: no fever, no chills, no fatigue, no weakness and no anorexia Respiratory: no cough, no dyspnea and no dyspnea on exertion Cardiovascular: no chest pain, no palpitations and no edema Gastrointestinal: no abdominal pain, no nausea and no constipation Genitourinary: no dysuria, no difficulty urinating, no urinary frequency, no hematuria and no flank pain Musculoskeletal: no back pain and no joint pain Integumentary: no non-healing lesions Physical Exam Physical Exam: General: Resting comfortably HEENT: NC/AT; PERRLA with EOMI; [place] conjunctiva, MMM. No erythema of posterior pharynx Neck: Supple and nontender Cardiac: RRR Lungs: CTA bilaterally Abdomen: Bowel normoactive X 4; Nontender to palpation Extremities: Warm. No edema present Neuro: No focal weakness Skin: No rash Results & Data Vital Signs (Past 12 Hours) Vital Signs Temp Pulse Resp BP BP Pulse Ox 07/01/19 07:45 36.9 C 73 15 109/62 97 07/01/19 03:45 36.9 C 102 H 16 150/88 H 100 07/01/19 03:26 37.9 C H 96 H 18 133/60 97 Laboratory Results 07/01/19 07/01/19 07/01/19 Range/Units 06:08 06:08 00:05 WBC 9.93 (4.8-10.8) K/uL RBC 3.66 L (4.2-5.4) M/uL Hgb 11.6 L (12.0-16.0) g/dL Hct 34.4 L (37-47) % MCV 94.0 (80-100) fL MCH 31.7 (25-34) pg MCHC 33.7 (32-36) g/dL RDW Std Deviation 50.1 H (36.4-46.3) fL RDW Coeff of Frank 14.8 H (11.5-14.5) % Plt Count 261 (130-400) K/uL MPV 10.6 H (7.4-10.4) fL Immature Gran % (Auto) 0.3 % Neut % (Auto) 82.4 % Lymph % (Auto) 6.8 % Island % (Auto) 9.6 % Eos % (Auto) 0.8 % Baso % (Auto) 0.1 % Immature Gran # (Auto) 0.03 H (0.00-0.02) K/uL Neut # (Auto) 8.18 H (1.4-6.5) K/uL Lymph # (Auto) 0.68 L (1.2-3.4) K/uL Island # (Auto) 0.95 H (0.11-0.59) K/uL Eos # (Auto) 0.08 (0-0.5) K/uL Baso # (Auto) 0.01 (0-0.2) K/uL Sodium 138 (136-145) mmol/L Potassium 3.4 L (3.5-5.1) mmol/L Chloride 109 H (98-107) mmol/L Carbon Dioxide 23 (21-32) mmol/L Anion Gap 6.0 (3-11) BUN 11 (7-18) mg/dl Creatinine 0.67 (0.6-1.2) mg/dl Est Cr Clr Drug Dosing 128.0 ml/min Est GFR ( Amer) 142.6 Est GFR (Non-Af Amer) 123.0 BUN/Creatinine Ratio 16.4 (10-20) Glucose 104 H (70-99) mg/dl Calcium 8.1 L (8.5-10.1) mg/dl Total Bilirubin (0.2-1) mg/dl AST (15-37) U/L ALT (12-78) U/L Alkaline Phosphatase (45-117) U/L Total Protein (6.4-8.2) gm/dl Albumin (3.4-5.0) gm/dl Globulin (2.5-4.0) gm/dl Albumin/Globulin Ratio (0.9-2) Urine Color Yellow Urine Appearance Cloudy A (Clear) Urine pH 6.5 (4.5-7.5) Ur Specific Shafer 1.011 (1.000-1.030) Urine Protein 1+ H (Negative) Urine Glucose (UA) Negative (Negative) Urine Ketones Negative (Negative) Urine Blood 3+ H (Negative) Urine Nitrite Negative (Negative) Urine Bilirubin Negative (Negative) Urine Urobilinogen Negative (Negative) Ur Leukocyte Esterase 3+ H (Negative) Urine WBC (Auto) >30 H (0-5) /hpf Urine RBC (Auto) >30 H (0-4) /hpf U Hyaline Cast (Auto) 0 (0-5) /lpf U Epithel Cells (Auto) >30 H (0-5) /lpf Urine Bacteria (Auto) 2+ H (Negative) Influenza Type A (PCR) (Neg) Influenza Type B (PCR) (Neg) 07/01/19 07/01/19 07/01/19 Range/Units 00:01 00:01 00:00 WBC 13.87 H (4.8-10.8) K/uL RBC 3.97 L (4.2-5.4) M/uL Hgb 12.6 (12.0-16.0) g/dL Hct 37.4 (37-47) % MCV 94.2 (80-100) fL MCH 31.7 (25-34) pg MCHC 33.7 (32-36) g/dL RDW Std Deviation 49.9 H (36.4-46.3) fL RDW Coeff of Frank 14.5 (11.5-14.5) % Plt Count 287 (130-400) K/uL MPV 10.5 H (7.4-10.4) fL Immature Gran % (Auto) 0.2 % Neut % (Auto) 84.3 % Lymph % (Auto) 6.1 % Island % (Auto) 8.5 % Eos % (Auto) 0.8 % Baso % (Auto) 0.1 % Immature Gran # (Auto) 0.03 H (0.00-0.02) K/uL Neut # (Auto) 11.69 H (1.4-6.5) K/uL Lymph # (Auto) 0.84 L (1.2-3.4) K/uL [place] # (Auto) 1.18 H (0.11-0.59) K/uL Eos # (Auto) 0.11 (0-0.5) K/uL Baso # (Auto) 0.02 (0-0.2) K/uL Sodium 137 (136-145) mmol/L Potassium 3.3 L (3.5-5.1) mmol/L Chloride 107 (98-107) mmol/L Carbon Dioxide 25 (21-32) mmol/L Anion Gap 5.0 (3-11) BUN 15 (7-18) mg/dl Creatinine 0.82 (0.6-1.2) mg/dl Est Cr Clr Drug Dosing 104.6 ml/min Est GFR ( Amer) 116.1 Est GFR (Non-Af Amer) 100.2 BUN/Creatinine Ratio 18.4 (10-20) Glucose 129 H (70-99) mg/dl Calcium 8.9 (8.5-10.1) mg/dl Total Bilirubin 0.7 (0.2-1) mg/dl AST 23 (15-37) U/L ALT 37 (12-78) U/L Alkaline Phosphatase 135 H (45-117) U/L Total Protein 6.9 (6.4-8.2) gm/dl Albumin 2.8 L (3.4-5.0) gm/dl Globulin 4.1 H (2.5-4.0) gm/dl Albumin/Globulin Ratio 0.7 L (0.9-2) Urine Color Urine Appearance (Clear) Urine pH (4.5-7.5) Ur Specific Shafer (1.000-1.030) Urine Protein (Negative) Urine Glucose (UA) (Negative) Urine Ketones (Negative) Urine Blood (Negative) Urine Nitrite (Negative) Urine Bilirubin (Negative) Urine Urobilinogen (Negative) Ur Leukocyte Esterase (Negative) Urine WBC (Auto) (0-5) /hpf Urine RBC (Auto) (0-4) /hpf U Hyaline Cast (Auto) (0-5) /lpf U Epithel Cells (Auto) (0-5) /lpf Urine Bacteria (Auto) (Negative) Influenza Type A (PCR) Neg for Influ A (Neg) Influenza Type B (PCR) Neg for Influ B (Neg) PG Care Time/CCT Total # of Minutes Spent Total Time Spent with Patient: Total time spent is greater than 50% in coordination of care (as documented) at patient's floor/unit and/or counseling patient: (1) Fever Fever type: unspecified Qualified Code(s): R50.9 - Fever, unspecified (2) Hepatitis C Viral hepatitis chronicity: acute
[2019-07-01] MEDS: ACETAMINOPHEN 325 MG TAB PO PRN (15:22)
[2019-07-01] MEDS: CEFEPIME 2,000 MG in SYRINGE 7.5 ML IV SCH (19:02)
[2019-07-02] MEDS: ACETAMINOPHEN 325 MG TAB PO PRN ×2 (00:18→15:56)
[2019-07-02] MEDS ORDERED: cefTRIAXone SODIUM 2,000 MG in DEXTROSE 5% 50 ML IV SCH (01:00)
[2019-07-02] MEDS: SODIUM CHLORIDE 0.9% 1000ML 1,000 ML IV SCH (01:54)
[2019-07-02] MEDS: CEFEPIME 2,000 MG in SYRINGE 7.5 ML IV SCH ×3 (01:55→18:23)
[2019-07-02 08:39] LABS: Calcium 8.5 mg/dl (8.5-10.1); Creatinine Clr Calc Pharmacy 122.5 ml/min; Est GFR (African American) 140.5; Est GFR (Non-African American) 121.3; Magnesium 1.8 mg/dl (1.8-2.4)
--- NOTE | 2019-07-02 11:55 | Hospitalist Progress Note ---
Date of Service July 02, 2019 Assessment & Plan (1) Sepsis: - Leukocytosis, tachycardia, fevers on admission in setting of confirmed pyelonephritis/gram negative bacteremia. - Received IV fluid hydration at 125 cc/hr, now discontinued. - Treatment of acute infection as noted below. (2) Gram-negative bacteremia: - BC (1 of 2) on admission +gram negative bacilli; repeat BC from this morning are pending. - Likely related to urinary source -- UC pos for E. coli. - Continue Cefepime 2 gm IV q8hr for empiric coverage (will hold narrowing antibiotic coverage --> had persistent fevers following dose of Ceftriaxone IV); follow UC sensitivities to determine abx choice at home. (3) Pyelonephritis: - Dilated right renal collecting system with urothelial thickening likely representing pyelonephritis; also concern for possible recent renal obstructing calculi. - UC pos for E. coli, sensitivities pending. - Continue Cefepime 2 gm IV q8hr. - Urology consulted, pt. likely has a phlebolith but does not have obstructing renal calculi. Does have small stone in left kidney, does not require intervention. (4) Fever: - Likely related to pyelonephritis; now afebrile >12 hours. (5) Hepatitis C: - Patient with prior history of IV drug use with successful recovery. Has been drug-free for years. Was just informed that she has Hep C. - Outpatient referral for treatment. (6) : - S/p on 06/24/19; doing well from a gynecological standpoint. - Is not currently - therefore no concern for medication interactions. (7) Hypokalemia: - Replace as needed. (8) DVT prophylaxis: - SCDs; hold pharmacologic ppx due to recent delivery. Dispo: Med/surg; discharge pending results of repeat BC and results of UC sensitivities, likely on Tuesday 07/03. Supervising Physician Co-Signing Physician Notes Attending Attestation: Chart reviewed in detail, care plan d/w OG Palomo. I agree w/ the sims components of her documentation. 24yo female, recently post- following a - with UTI/right-sided pyelonephritis/gram negative kelvin septicemia. Urine cx with e.coli; blood cultures most certainly will grow e.coli as well. Repeat blood cx's pending. Vitals/labs remain acceptable. Cont IV abx with cefepime - this is appropriate as she is at higher-risk of hospital-acquired gram negatives given her recent stay for her /delivery. Ean Ramos MD Subjective Pt. is doing well overall - has been afebrile >12 hours. T max of 39.2 C on 07/01/19. HR is also improved. She denies flank pain, SOB, chest pain, dysuria or hematuria. Review of Systems Review of Systems: All systems reviewed & are unremarkable except as noted in HPI & below Constitutional: no fever, no chills, no fatigue and no weakness Respiratory: no cough, no dyspnea, no dyspnea on exertion and no wheezing Cardiovascular: no chest pain, no palpitations and no edema Gastrointestinal: no abdominal pain, no nausea and no constipation Genitourinary: no dysuria, no difficulty urinating, no hematuria and no flank pain Musculoskeletal: no back pain and no joint pain Physical Exam Physical Exam: General: Resting comfortably HEENT: NC/AT; PERRLA with EOMI; [place] conjunctiva, MMM. No erythema of posterior pharynx Neck: Supple and nontender Cardiac: RRR Lungs: CTA bilaterally Abdomen: Bowel normoactive X 4; Nontender to palpation Extremities: Warm. No edema present Neuro: No focal weakness Skin: No rash Results & Data Vital Signs (Past 12 Hours) Vital Signs Temp Pulse Resp BP Pulse Ox 07/02/19 07:25 37.0 C 60 16 112/67 95 07/02/19 06:20 36.6 C 07/02/19 01:53 37.2 C Laboratory Results 07/02/19 Range/Units 07:46 Sodium 140 (136-145) mmol/L Potassium 4.0 D (3.5-5.1) mmol/L Chloride 109 H (98-107) mmol/L Carbon Dioxide 26 (21-32) mmol/L Anion Gap 5.0 (3-11) BUN 7 (7-18) mg/dl Creatinine 0.70 (0.6-1.2) mg/dl Est Cr Clr Drug Dosing 122.5 ml/min Est GFR ( Amer) 140.5 Est GFR (Non-Af Amer) 121.3 BUN/Creatinine Ratio 10.0 (10-20) Glucose 86 (70-99) mg/dl Calcium 8.5 (8.5-10.1) mg/dl Magnesium 1.8 (1.8-2.4) mg/dl PG Care Time/CCT Total # of Minutes Spent Total Time Spent with Patient: Total time spent is greater than 50% in coordination of care (as documented) at patient's floor/unit and/or counseling patient: (1) Fever Fever type: unspecified Qualified Code(s): R50.9 - Fever, unspecified (2) Hepatitis C Viral hepatitis chronicity: acute
[2019-07-03] MEDS: CEFEPIME 2,000 MG in SYRINGE 7.5 ML IV SCH (03:59)
--- NOTE | 2019-07-03 16:53 | Discharge Summary ---
Date of Service July 03, 2019 Admission HPI Per Admitting Provider Robert Bae is a 24-year-old female presenting with right nephrolithiasis. Patient is s/p spontaneous vaginal delivery on 06/24/2019 with delivery of a healthy baby girl. She had some hypertension late in therefore was induced. Otherwise was uncomplicated. Uncomplicated delivery. Last night patient developed fever, chills and rigors as well as worsening dysuria and right-sided abdominal/flank pain. Her fever this evening was 102.8 which prompted her to come to the ER. Additionally she is complaining of some mild shortness of breath and she had a headache earlier in the evening which has since resolved. She is still passing lochia. Denies foul-smelling discharge or clots. Denies visual changes or edema of her hands or feet. No history of renal stones. No additional complaints at this time ER course: Ceftriaxone, normal saline solution Principal Diagnosis Pyelonephritis with E. Coli/E. Coli Bacteremia Discharge Exam Constitutional WD/WN, vitals as above Eyes + anicteric sclerae ENMT Ears: no hearing impairment Neck trachea midline Respiratory normal respiratory effort, lungs clear to auscultation Cardiovascular RRR, no murmur, no edema Gastrointestinal (Abdomen) Inspection/Auscultation: normal bowel sounds Percussion/Palpation: abdomen soft; abdomen nontender Musculoskeletal Head/Neck/Chest: normocephalic and head atraumatic Skin no rashes, warm and dry Neurologic moves all extremities Psychiatric A+Ox3, euthymic affect Discharge Data Allergies Allergy/AdvReac Type Severity Reaction Status Date / Time No Known Allergies Allergy Verified 07/01/19 00:31 Consultations 07/01/19 02:13 ED Decision to Admit Stat 07/01/19 03:57 Consult Urology Routine Ordered Studies 07/01/19 00:46 CT abd pelvis IV con only Urgent 07/01/19 00:49 CT angio chest PE protocol Urgent Hospital Course (1) Sepsis: - Presence of leukocytosis, tachycardia, fevers and confirmed infection pyelonephritis and bacteremia - now RESOLVED see treatment below (2) Gram-negative bacteremia: - BC 1 of 2 with pansensitive e. coli which is also present on UCx - Repeat BCx obtained on 07/02 and currently NGTD x 24 hours and will continue to monitor during week and will address if findings present - Treated with Cefepime 2 g IV Q8H while impatient - given pyelonephritis and bacteremia the use of fluoroquinolones are preferred over cephalosporins for oral options -- Will treat with Ciprofloxacin 500 mg x 14 days with day one being 07/02 - first negative BCx (3) Pyelonephritis: - Dilated right renal collecting system with urothelial thickening likely representing pyelonephritis; also concern for possible recent renal obstructing calculi. - UC pos for pansensitive E. coli - treatment as above - Urology consulted - pt. likely has a phlebolith but does not have obstructing renal calculi. Does have small stone in left kidney, does not require intervention. (4) Hepatitis C: - Patient with prior history of IV drug use with successful recovery. Has been drug-free for years. Was just informed that she has Hep C. - Outpatient referral for treatment. (5) : - S/P on 06/24/19; doing well from a gynecological standpoint. - lochia improving - Is not currently - therefore no concern for medication in teractions - confirmed with patient that she is not Total Time Total Time Spent Total Time Spent (In Minutes): Greater than 30 minutes Discharge Plan Discharge Items Patient Disposition: Home - Self-Care Reason For Visit: R KIDNEY STONE WITH HYDRONEPHROSIS Discharge Diagnosis: Pyelonephritis, Gram negative bacteremia Condition on Discharge: Good Goals: You have been hospitalized for an acute medical problem. During your stay at [facility], we have made an effort to correct the problem that brought you to the hospital while keeping you as comfortable as possible. Medi cations were used to bring your condition under control and your discharge instructions will include directions for any medications you should take after leaving the hospital. Please make sure you see your Primary Care Provider as part of your follow up plan. Activity: Resume your previous activity Non-emergency contact: Primary Care Provider Call non-emergency contact if: you have any medication questions, your symptoms worsen and you have a fever Follow-up/Referrals: Marietta Nolan MD [Primary Care Provider] - 07/07/19 12:00 pm (Please, follow up at [facility] with Dr. Nolan on WednesdayJuly 07 at 12:00 pm. *If you need to change this appointment, call the office at [phone].) Diet: Regular Addtl Attending Provider Instructions: Pyelonephritis with Bacteremia: - You have a urinary tract infection that went up into the kidneys and this is called Pyelonephritis. This infection is from e. coli which is the most common bacteria that causes urinary tract infections. This infection did leak into your blood stream but thankfully the new blood cultures do not show any new bacterial growth. - For pyelonephritis and bacteremia we do have to use a total of 14 days antibiotics. Given the bacteremia we start the treatment from the day of negative cultures which was yesterday on 07/02. - Your antibiotic will be Ciprofloxacin 500 mg twice a day. You will need to take only one dose this evening on 07/03 but then resume twice a day on 07/04. I know you mentioned you are not but do want to repeat to not breastfeed when on this medication - There is no restrictions at this time other then to rest, drink plenty of f luids, and take antibiotics. You should continue to feel better each day. If you begin to develop fevers again or urinary symptoms/back pain please get checked out by a doctor. Hepatitis C: - Recommend you follow-up as outpatient in regards to this Recent : - Continue to follow with [facility] for management/monitoring Pending Studies at Discharge: Yes Studies:: Finalized blood cultures. So far these are negative and will monitor them through the week Stand-Alone Forms: My [facility], Smoking Cessation Medications and DC Order Prescriptions: New ciprofloxacin HCl 500 mg tablet 500 mg PO BID Qty: 25 RF: 0 Continued PNV [id number] [] 28 mg iron- 800 mcg Tablet 1 tab PO DAILY RF: 0 Discharge Orders: Discharge Order (Routine); Ordered 07/03/19 Ordered By: Rosenda Lawson/Other Patient Handouts: Pyelonephritis Dc Admission Data Admit Date/Time: 07/01/19 02:30 Attending Provider: Quinn Orona Admit Provider: Eyal Parikh Primary Care Provider: Marietta Nolan Other Providers: Lorna Wakefield ; Javy Guadarrama Other Interventions: Discharge Summary Assessment (RN) Last Done: 07/03/19 10:59 DC Date/Time DO NOT enter until pt leaves facility: 07/03/19 12:21 Supervising Physician Co-Signing Physician Notes Attending note: patient seen and examined with Rosenda Rangel PA-C. I agree with her discharge summary. I personally reviewed the labs and imaging findings. Patient feeling much better, no fever, no pain, urinating well. Reviewed chart, blood cultures with sensitive E coli, will use Cipro. Confirmed that patient is NOT breast feeding her baby. - Pyelonephritis, E coli sepsis with confirmed bacteremia will treat for 14 days with Cipro no fever, vitals stable, patient feels so much better, ready for discharge
== END 2019-07-03 12:21 | disposition home or self-care (01) | DRG 872 ==
LOC: ED 23:38 → SUATTDRO 07-01 02:30 → 3W 07-01 02:30